=== PATIENT | female | born 1965 | race Caucasian/White ===

== ENCOUNTER → 2017-10-12 | Outpatient (CLI) | payer OTHER ==
[2017-10-12 09:02] LABS: ESTIMATED AVERAGE GLUCOSE 283 MG/DL (60-110); HEMOGLOBIN A1c 11.5 %
[2017-10-12 09:12] LABS: ANION GAP 7 MEQ/L (8-16); BLOOD UREA NITROGEN 15 MG/DL (7-18); CALCIUM LEVEL 8.7 MG/DL (8.5-10.1); CARBON DIOXIDE LEVEL 29 MEQ/L (21-32); CHLORIDE LEVEL 104 MEQ/L (98-107); CHOLESTEROL LEVEL 248 MG/DL (<200); CHOLESTEROL RISK RATIO 5.061 (<5); GLOMERULAR FILTRATION RATE > 60.0 (>51); GLUCOSE, FASTING 278 MG/DL (70-100); HDL CHOLESTEROL 49 MG/DL (>40); NON-HDL-C 199 MG/DL; SODIUM LEVEL 140 MEQ/L (136-145); TRIGLYCERIDES LEVEL 150 MG/DL (<150)
[2017-10-12 09:21] LABS: MAU/CREAT RATIO 42.5 MCG/MG (0.0-30.0)
== END ==
LOC: M LAB 08:01
DX: E11.9 Type 2 diabetes mellitus without complications (principal)
CPT/HCPCS: 83036

== ENCOUNTER → 2018-04-14 | Outpatient (REF) | payer OTHER ==
[2018-04-14 15:22] LABS: ESTIMATED AVERAGE GLUCOSE 212 MG/DL (60-110)
[2018-04-14 15:39] LABS: CREATININE, URINE 43.6 MG/DL; MALB URINE SIEMENS 5.5 MG/L; MAU/CREAT RATIO 12.6 MCG/MG (0.0-30.0)
== END ==
LOC: M SFHCPLAZ 14:08
DX: E11.9 Type 2 diabetes mellitus without complications (principal)

== ENCOUNTER 2018-07-18 11:03 | Day surgery (SDC) | payer OTHER ==
[2018-07-18] MEDS: NS 1,000 ML IV (11:50)
[2018-07-18] MEDS ORDERED: PROPOFOL 200 MG/20 ML VIAL As Ordered ×3 (12:20→12:26)
[2018-07-18] MEDS ORDERED: LIDOCAINE 2% INJ 100 MG/5 ML SDV (FOR ANES.) As Ordered (12:20)
== END 2018-07-18 13:35 | disposition home or self-care (01) ==
LOC: M OPP 13:35
DX: Z12.11 Encounter for screening for malignant neoplasm of colon (principal); K64.8 Other hemorrhoids
CPT/HCPCS: 45378

== ENCOUNTER → 2018-08-17 | Outpatient (REF) | payer OTHER ==
[2018-08-17 18:26] LABS: ANION GAP 10 MEQ/L (8-16); BLOOD UREA NITROGEN 15 MG/DL (7-18); CALCIUM LEVEL 9.4 MG/DL (8.5-10.1); CARBON DIOXIDE LEVEL 27 MEQ/L (21-32); CHLORIDE LEVEL 102 MEQ/L (98-107); GLOMERULAR FILTRATION RATE > 60.0 (>51); GLUCOSE, FASTING 201 MG/DL (70-100); POTASSIUM SERUM 4.1 MEQ/L (3.5-5.1); SODIUM LEVEL 139 MEQ/L (136-145)
[2018-08-17 19:35] LABS: ESTIMATED AVERAGE GLUCOSE 217 MG/DL (60-110); HEMOGLOBIN A1c 9.2 %
== END ==
LOC: M SFHCPLAZ 15:02
DX: E11.9 Type 2 diabetes mellitus without complications (principal)
CPT/HCPCS: 83036

== ENCOUNTER → 2018-12-10 | Outpatient (REF) | payer OTHER ==
[~2018-12-10] MED LIST: INVO300T PO; LIPI20TA PO; LISI-542 PO; METF10004 PO; [UNRECOGNIZED DRUG - CODE] PO
[2018-12-10 13:56] LABS: INFLUENZA A AMPLIFICATION POSITIVE (NEGATIVE); INFLUENZA B AMPLIFICATION NEGATIVE (NEGATIVE)
== END ==
LOC: M LAB REF 13:21
PROVIDERS: ATTEND Physician Assistant
DX: J11.1 Influenza due to unidentified influenza virus with other respiratory manifestations (principal)

== ENCOUNTER → 2019-02-20 | Outpatient (REF) | payer OTHER ==
[2019-02-20 16:41] LABS: HEMOGLOBIN A1c 8.9 %
== END ==
LOC: M SFHCPLAZ 14:25
PROVIDERS: ATTEND Family Medicine
DX: E11.9 Type 2 diabetes mellitus without complications (principal)

== ENCOUNTER → 2019-11-15 | Outpatient (REF) | payer OTHER ==
[2019-11-15 17:38] LABS: BLOOD UREA NITROGEN 18 MG/DL (7-18); CALCIUM LEVEL 9.5 MG/DL (8.5-10.1); CARBON DIOXIDE LEVEL 29 MEQ/L (21-32); CHLORIDE LEVEL 98 MEQ/L (98-107); CREATININE FOR GFR 0.74 MG/DL (0.55-1.30); GLOMERULAR FILTRATION RATE > 60.0 (>51); GLUCOSE, FASTING 301 MG/DL (70-100); POTASSIUM SERUM 4.4 MEQ/L (3.5-5.1); SODIUM LEVEL 133 MEQ/L (136-145)
[2019-11-15 18:04] LABS: HEMOGLOBIN A1c 9.2 %
[2019-11-15 18:13] LABS: CREATININE, URINE 21.4 MG/DL; MALB URINE SIEMENS < 5.0 MG/L; MAU/CREAT RATIO 23.3 MCG/MG (0.0-30.0)
== END ==
LOC: M SFHCPLAZ 15:23
DX: E11.9 Type 2 diabetes mellitus without complications (principal); R80.9 Proteinuria, unspecified

== ENCOUNTER → 2020-04-11 | Outpatient (REF) | payer OTHER, MEDICAID ==
[2020-05-26 20:15] LABS: MALB URINE SIEMENS 10.4 MG/L
== END ==
LOC: M LAB REF 07:05 → MERGE 07:05
PROVIDERS: ATTEND Physician Assistant
DX: E78.5 Hyperlipidemia, unspecified (principal); Z23 Encounter for immunization; E11.9 Type 2 diabetes mellitus without complications; Z68.32 Body mass index [BMI] 32.0-32.9, adult; E66.09 Other obesity due to excess calories; Z00.00 Encounter for general adult medical examination without abnormal findings

== ENCOUNTER → 2020-04-15 | Outpatient (REF) | payer MEDICAID, OTHER ==
[2020-05-18 10:36] LABS: BASO # 0.1 10^3/uL (0.0-0.2); BASO % 0.7 % (0.0-1.0); EOS # 0.2 10^3/uL (0.0-0.5); EOS % 2.2 % (0.0-3.0); HEMATOCRIT 42.4 % (36.0-47.0); HEMOGLOBIN 14.5 g/dl (12.0-15.5); LYMPH # 2.8 10^3/uL (1.5-5.0); LYMPH % 38.4 % (24.0-44.0); MEAN CORPUSCULAR HEMOGLOBIN 28.5 pg (27.0-33.0); MEAN CORPUSCULAR HGB CONC 34.2 g/dl (32.0-36.5); MEAN CORPUSCULAR VOLUME 83.5 fl (80.0-96.0); MONO # 0.6 10^3/uL (0.0-0.8); MONO % 8.1 % (0.0-5.0); NEUTROPHILS # 3.7 10^3/uL (1.5-8.5); NEUTROPHILS % 50.2 % (36.0-66.0); PLATELET COUNT, AUTOMATED 287 10^3/uL (150-450); RED BLOOD COUNT 5.08 10^6/uL (4.00-5.40); WHITE BLOOD COUNT 7.3 10^3/uL (4.0-10.0)
[2020-05-30 10:30] LABS: ALBUMIN 4.1 GM/DL (3.2-5.2); ALT/SGPT 25 U/L (12-78); BILIRUBIN,TOTAL 0.6 MG/DL (0.2-1.0); BLOOD UREA NITROGEN 11 MG/DL (7-18); CALCIUM LEVEL 9.1 MG/DL (8.5-10.1); CARBON DIOXIDE LEVEL 28 MEQ/L (21-32); CHLORIDE LEVEL 103 MEQ/L (98-107); CHOLESTEROL LEVEL 196 MG/DL (<200); CHOLESTEROL RISK RATIO 4.355 (<5); CREATININE FOR GFR 0.65 MG/DL (0.55-1.30); FREE T4 1.01 NG/DL (0.76-1.46); GLOMERULAR FILTRATION RATE > 60.0 (>51); GLUCOSE, FASTING 298 MG/DL (70-100); HDL CHOLESTEROL 45 MG/DL (>40); HEMOGLOBIN A1c 11.9 %; LDL CHOLESTEROL 114 MG/DL (<100); NON-HDL-C 151 MG/DL; POTASSIUM SERUM 4.5 MEQ/L (3.5-5.1); SODIUM LEVEL 137 MEQ/L (136-145); TOTAL 25(OH) VITAMIN D 24.9 NG/ML (30.0-100.0); TOTAL PROTEIN 7.7 GM/DL (6.4-8.2); TRIGLYCERIDES LEVEL 186 MG/DL (<150)
[2020-05-30 10:31] LABS: MALB URINE SIEMENS 11.4 MG/L
== END ==
LOC: MERGE 14:30 → M LAB REF 14:30
PROVIDERS: ATTEND Physician Assistant
DX: Z00.00 Encounter for general adult medical examination without abnormal findings (principal); E78.5 Hyperlipidemia, unspecified; Z23 Encounter for immunization; E11.9 Type 2 diabetes mellitus without complications; Z68.32 Body mass index [BMI] 32.0-32.9, adult; E66.09 Other obesity due to excess calories

== ENCOUNTER → 2020-04-30 | Outpatient (REF) | payer MEDICAID, OTHER ==
[2020-04-30 21:25] LABS: CHLAMYDIA DNA AMPLIFICATION NEGATIVE (NEGATIVE); GC DNA AMPLIFICATION NEGATIVE (NEGATIVE)
== END ==
LOC: MERGE 13:20 → M LAB REF 13:20
PROVIDERS: ATTEND Physician Assistant
DX: Z11.3 Encounter for screening for infections with a predominantly sexual mode of transmission (principal)

== ENCOUNTER → 2020-07-23 | Outpatient (REF) | payer OTHER ==
[2020-07-23 13:15] LABS: HEMATOCRIT 43.9 % (36.0-47.0); HEMOGLOBIN 14.4 g/dl (12.0-15.5); MEAN CORPUSCULAR HEMOGLOBIN 27.4 pg (27.0-33.0); MEAN CORPUSCULAR HGB CONC 32.8 g/dl (32.0-36.5); MEAN CORPUSCULAR VOLUME 83.6 fl (80.0-96.0); PLATELET COUNT, AUTOMATED 288 10^3/uL (150-450); RED BLOOD COUNT 5.25 10^6/uL (4.00-5.40); WHITE BLOOD COUNT 8.1 10^3/uL (4.0-10.0)
[2020-07-23 13:43] LABS: HEMOGLOBIN A1c 12.1 %
[2020-07-23 14:00] LABS: ALBUMIN 4.2 GM/DL (3.2-5.2); ALT/SGPT 23 U/L (12-78); BILIRUBIN,TOTAL 0.7 MG/DL (0.2-1.0); BLOOD UREA NITROGEN 13 MG/DL (7-18); CALCIUM LEVEL 9.5 MG/DL (8.5-10.1); CARBON DIOXIDE LEVEL 28 MEQ/L (21-32); CHLORIDE LEVEL 101 MEQ/L (98-107); CHOLESTEROL LEVEL 197 MG/DL (<200); CREATININE, URINE 71.7 MG/DL; GLOMERULAR FILTRATION RATE > 60.0 (>51); GLUCOSE, FASTING 306 MG/DL (70-100); HDL CHOLESTEROL 49 MG/DL (>40); LDL CHOLESTEROL 111 MG/DL (<100); MALB URINE SIEMENS 8.8 MG/L; MAU/CREAT RATIO 12.2 MCG/MG (0.0-30.0); NON-HDL-C 148 MG/DL; POTASSIUM SERUM 4.3 MEQ/L (3.5-5.1); SODIUM LEVEL 135 MEQ/L (136-145); TOTAL 25(OH) VITAMIN D 25.4 NG/ML (30.0-100.0); TOTAL PROTEIN 7.8 GM/DL (6.4-8.2); TRIGLYCERIDES LEVEL 184 MG/DL (<150)
== END ==
LOC: M LAB REF 12:39
PROVIDERS: ATTEND Physician Assistant
DX: E11.65 Type 2 diabetes mellitus with hyperglycemia (principal); E78.5 Hyperlipidemia, unspecified; E55.9 Vitamin D deficiency, unspecified

== ENCOUNTER → 2020-11-11 | Outpatient (REF) | payer OTHER ==
[~2020-11-11] MED LIST changes: -LISI-542 PO; +LISI-898 PO
[2020-11-11 16:43] LABS: ALT/SGPT 23 U/L (12-78); BILIRUBIN,TOTAL 0.4 MG/DL (0.2-1.0); BLOOD UREA NITROGEN 11 MG/DL (7-18); CALCIUM LEVEL 9.3 MG/DL (8.5-10.1); CARBON DIOXIDE LEVEL 30 MEQ/L (21-32); CHLORIDE LEVEL 104 MEQ/L (98-107); CREATININE FOR GFR 0.66 MG/DL (0.55-1.30); GLOMERULAR FILTRATION RATE > 60.0 (>51); GLUCOSE, FASTING 206 MG/DL (70-100); POTASSIUM SERUM 4.8 MEQ/L (3.5-5.1); SODIUM LEVEL 138 MEQ/L (136-145); TOTAL PROTEIN 7.4 GM/DL (6.4-8.2)
== END ==
LOC: M LAB REF 15:49
PROVIDERS: ATTEND Physician Assistant
DX: E11.65 Type 2 diabetes mellitus with hyperglycemia (principal)

== ENCOUNTER → 2021-12-24 | Outpatient (CLI) | payer OTHER ==
[~2021-12-24] MED LIST changes: -LISI-898 PO; +LISI5TAB11 PO
== END ==
LOC: M WHC 12:27
PROVIDERS: ATTEND Physician Assistant
DX: Z12.31 Encounter for screening mammogram for malignant neoplasm of breast (principal)

== ENCOUNTER → 2022-09-29 | Outpatient (REF) | payer OTHER ==
[2022-09-29 16:54] LABS: CREATININE, URINE 17.3 MG/DL; MALB URINE SIEMENS < 3.0 MG/DL; MAU/CREAT RATIO 17.3 MCG/MG (0.0-30.0)
== END ==
LOC: M LAB REF 16:10
PROVIDERS: ATTEND Physician Assistant
DX: E11.65 Type 2 diabetes mellitus with hyperglycemia (principal)

== ENCOUNTER → 2022-10-27 | Outpatient (REF) | payer OTHER ==
[2022-10-27 14:13] LABS: HEMATOCRIT 42.8 % (36.0-47.0); HEMOGLOBIN 14.4 g/dl (12.0-15.5); MEAN CORPUSCULAR HEMOGLOBIN 28.2 pg (27.0-33.0); MEAN CORPUSCULAR HGB CONC 33.6 g/dl (32.0-36.5); MEAN CORPUSCULAR VOLUME 83.8 fl (80.0-96.0); PLATELET COUNT, AUTOMATED 293 10^3/uL (150-450); RED BLOOD COUNT 5.11 10^6/uL (4.00-5.40); WHITE BLOOD COUNT 9.1 10^3/uL (4.0-10.0)
[2022-10-27 14:46] LABS: ALBUMIN 3.9 G/DL (3.2-5.2); ALKALINE PHOSPHATASE 85 U/L (46-116); ALT/SGPT 22 U/L (7.0-40); AST/SGOT 20 U/L (<34); BILIRUBIN,TOTAL 0.7 MG/DL (0.3-1.2); BLOOD UREA NITROGEN 11 MG/DL (9-23); CALCIUM LEVEL 9.7 MG/DL (8.5-10.1); CARBON DIOXIDE LEVEL 28 MMOL/L (20-31); CHLORIDE LEVEL 103 MMOL/L (98-107); CHOLESTEROL LEVEL 152 MG/DL (<200); CHOLESTEROL RISK RATIO 3.78 (<5); CREATININE FOR GFR 0.52 MG/DL (0.55-1.30); GLOMERULAR FILTRATION RATE > 60.0 (>51); GLUCOSE, FASTING 201 MG/DL (60-100); HDL CHOLESTEROL 40.2 MG/DL (>40); NON-HDL-C 112 MG/DL; POTASSIUM SERUM 4.8 MMOL/L (3.5-5.1); SODIUM LEVEL 139 MMOL/L (136-145); TOTAL 25(OH) VITAMIN D 31.7 NG/ML (20.0-100.0)
[2022-10-27 18:42] LABS: TOTAL PROTEIN 7.3 G/DL (5.7-8.2); TRIGLYCERIDES LEVEL 229 MG/DL (<150)
== END ==
LOC: M LAB REF 12:59
PROVIDERS: ATTEND Physician Assistant
DX: E55.9 Vitamin D deficiency, unspecified (principal); E11.65 Type 2 diabetes mellitus with hyperglycemia

== ENCOUNTER → 2022-11-10 | Outpatient (REF) | payer OTHER ==
[2022-11-10 17:28] LABS: CREATININE, URINE 31.1 MG/DL; MAU/CREAT RATIO 9.6 MCG/MG (0.0-30.0)
== END ==
LOC: M LAB REF 16:37
PROVIDERS: ATTEND Physician Assistant
DX: E11.65 Type 2 diabetes mellitus with hyperglycemia (principal)

== ENCOUNTER → 2023-01-07 | Outpatient (CLI) | payer OTHER | LOC: M WHC 08:59 | PROVIDERS: ATTEND Physician Assistant | DX: Z12.31 Encounter for screening mammogram for malignant neoplasm of breast (principal) ==

== ENCOUNTER → 2023-12-21 | Outpatient (CLI) | payer OTHER | LOC: M WUC 08:48 | PROVIDERS: ATTEND Nurse Practitioner Family | DX: M79.671 Pain in right foot (principal) ==

== ENCOUNTER → 2024-10-17 | Outpatient (REF) | payer OTHER ==
[2024-10-17 17:17] LABS: CREATININE, URINE 65.6 MG/DL; MAU/CREAT RATIO 12.1 MCG/MG (0.0-30.0)
[2024-10-17 18:29] LABS: GC DNA AMPLIFICATION NEGATIVE (NEGATIVE)
[2024-10-17 18:57] LABS: Trichomonas vaginalis (AMP) NOT DETECTED (NEGATIVE)
== END ==
LOC: M LAB REF 16:12
PROVIDERS: ATTEND Physician Assistant
DX: Z11.3 Encounter for screening for infections with a predominantly sexual mode of transmission (principal); E11.65 Type 2 diabetes mellitus with hyperglycemia

== ENCOUNTER → 2024-12-19 | Outpatient (CLI) | payer OTHER | LOC: M WHC 08:10 | PROVIDERS: ATTEND Physician Assistant | DX: Z12.31 Encounter for screening mammogram for malignant neoplasm of breast (principal) ==

== ENCOUNTER → 2024-12-19 | Outpatient (CLI) | payer OTHER | LOC: M PLAIMG 09:02 | PROVIDERS: ATTEND Physician Assistant | DX: M25.511 Pain in right shoulder (principal) ==

== ENCOUNTER → 2025-03-12 | Outpatient (CLI) | payer OTHER | LOC: M RAD 07:16 | PROVIDERS: ATTEND Physician Assistant | DX: M72.2 Plantar fascial fibromatosis (principal) ==

== ENCOUNTER → 2025-03-25 | Outpatient (REF) | payer OTHER ==
[2025-03-25 13:02] LABS: TOTAL 25(OH) VITAMIN D 39.9 NG/ML (20.0-100.0)
[2025-03-25 13:06] LABS: ALT/SGPT 28 U/L (7.0-40); AST/SGOT 18 U/L (<34); CALCIUM LEVEL 9.5 MG/DL (8.5-10.1); CARBON DIOXIDE LEVEL 25 MMOL/L (20-31); CHLORIDE LEVEL 101 MMOL/L (98-107); CHOLESTEROL LEVEL 186 MG/DL (<200); CHOLESTEROL RISK RATIO 3.74 (<5); CREATININE FOR GFR 0.47 MG/DL (0.55-1.30); GLOMERULAR FILTRATION RATE > 90.0 (>51); LDL CHOLESTEROL 107.5 MG/DL (<100); NON-HDL-C 136.3 MG/DL; POTASSIUM SERUM 4.7 MMOL/L (3.5-5.1); SODIUM LEVEL 138 MMOL/L (136-145); TRIGLYCERIDES LEVEL 144 MG/DL (<150)
[2025-03-25 14:13] LABS: ESTIMATED AVERAGE GLUCOSE 315.0 MG/DL (60-110)
== END ==
LOC: M LAB REF 12:05
PROVIDERS: ATTEND Nurse Practitioner Family
DX: E78.5 Hyperlipidemia, unspecified (principal); E11.65 Type 2 diabetes mellitus with hyperglycemia; E55.9 Vitamin D deficiency, unspecified

== ENCOUNTER → 2025-08-28 | Outpatient (REF) | payer OTHER | LOC: M LAB REF 11:39 | PROVIDERS: ATTEND Physician Assistant | DX: B34.9 Viral infection, unspecified (principal) ==